=== PATIENT | female | born 1940 | race Caucasian/White ===

== ENCOUNTER 2021-04-05 07:06 | Emergency (ER) | payer MEDICARE, SELFPAY ==
--- NOTE | ~2021-04-05 | CT_ITS ---
EXAMINATION: CT ABDOMEN AND PELVIS WITHOUT CONTRAST CLINICAL INFORMATION: Abdominal pain, nausea and loose stools. COMPARISON: None TECHNIQUE: Multidetector volumetric imaging was performed from the superior aspect of the liver through the pubic symphysis. Sagittal and coronal reformatted images were obtained on the technologist's workstation. This CT examination was performed using dose optimization techniques as appropriate, variously including the following: *Automated exposure control *Adjustment of mA and/or kV according to patient size (this includes techniques or standardized protocols for targeted exams where dose is matched to indication/reason for exam; i.e. extremities or head) *Use of iterative reconstruction technique DLP: 585 mGy-cm FINDINGS: LUNG BASES: There is bibasilar atelectasis. The heart size is normal. A small hiatal hernia is noted. LIVER, GALLBLADDER, AND BILIARY TREE: The liver is normal in size, shape, and attenuation. There is a 1.5 cm left hepatic hypodense lesion measuring 16 Hounsfield units consistent with cysts. There is a 5 mm hypodensity right hepatic lobe image 22/3 probable cyst is There is no intrahepatic ductal dilatation.. The gallbladder is unremarkable with no evidence of radiopaque gallstones, gallbladder wall thickening, or obvious pericholecystic inflammatory changes. PANCREAS: Unremarkable. SPLEEN: Unremarkable. ADRENAL GLANDS: Unremarkable. KIDNEYS AND URETERS: The kidneys are normal in size, shape, and attenuation. No hydronephrosis, hydroureter, or calculi seen. No perinephric stranding. There is a 2.3 cm cyst in the midpole right kidney. BLADDER: The bladder is nondistended with a small urachus noted. GASTROINTESTINAL TRACT: There is scattered stool, diverticula and gas seen throughout the colon without distention. The diverticuli most prominent in the sigmoid colon without any mural thickening or pericolic fat stranding. The small bowel loops are normal caliber. The appendix is not visualized. ABDOMINAL WALL: There is a small umbilical hernia containing fat. LYMPH NODES: Normal. VASCULAR: Unremarkable. PELVIC VISCERA: The uterus is atrophic or surgically removed. There is no adnexal mass seen. No abnormal pelvic lymph nodes. OSSEOUS STRUCTURES: There is grade 1 anterolisthesis L4 over L5 with degenerative disc changes L4-L5 and L5-S1 disc levels. No lytic or sclerotic process seen. CT/CT abdomen pelvis wo con IMPRESSION: Colonic diverticulosis most prominent in the sigmoid colon. No evidence of diverticulitis. Hepatic and right renal cysts. Mild constipation.
--- NOTE | ~2021-04-05 | XR_ITS ---
EXAMINATION: XR CHEST CLINICAL INFORMATION: Weakness. COMPARISON: 11/23/2019 chest radiographs. TECHNIQUE: Frontal view of the chest was obtained. FINDINGS: No significant abnormality is noted involving the heart, lungs, mediastinum, bony thorax or soft tissues. XR/XR chest 1V IMPRESSION: No acute cardiopulmonary process.
--- NOTE | 2021-04-05 07:11 | ECG_ITS ---
Test Reason : WEAKNESS Blood Pressure : / mmHG Vent. Rate : 071 BPM Atrial Rate : 071 BPM P-R Int : 148 ms QRS Dur : 088 ms QT Int : 416 ms P-R-T Axes : 044 -40 017 degrees QTc Int : 452 ms Normal sinus rhythm Incomplete RBBB Left axis deviation Abnormal ECG When compared with ECG of 23-NOV-2019 14:31, No significant change was found Referred By: Shefali Salas Electronically Signed By:Julio Cesar Mckay
--- NOTE | 2021-04-05 07:12 | ED.WEAKNESS ---
HPI - Weakness General Chief complaint: Weakness Stated complaint: general weakness Time Seen by Provider: 04/05/21 07:12 Source: patient and EMS Mode of arrival: EMS Limitations: no limitations History of Present Illness HPI Narrative: 80 yo female with interstitial cystitis, HTN, HLD here with weakness, vague chest pain since 5am, overall feeling weak and nauseated had some chills since the weekend worried she has UTI MD Complaint: generalized weakness Onset (ago): hour(s) (5am) Duration: constant Location: generalized Migration: none Severity: moderate Quality: dull Relieving factors: none Exacerbating factors: none Context: recent illness Associated symptoms: chest pain, fever/chills, loss of appetite and nausea/vomiting Related Data Allergies Allergy/AdvReac Type Severity Reaction Status Date / Time No Known Allergies Allergy Unknown NOT Unverified 07/20/20 14:54 APPLICABLE Review of Systems Review of Systems: Constitutional : No Weight loss, No Fever, pos Chills, pos Fatigue, pos Malaise ENT/Mouth : No sore throat, No Rhinorrhea Eyes: No Eye Pain, No Swelling, No Redness Cardiovascular : pos Chest Pain, No SOB, No Dyspnea on Exertion, No Orthopnea, No Edema, No Palpitations Respiratory : No Cough, No Sputum, No Wheezing Gastrointestinal : pos Nausea, No Vomiting, No Diarrhea, No Constipation, No abdominal Pain, No Hematochezia, No Melena Genitourinary : No Dysuria, No Urinary Frequency, No Hematuria, Musculoskeletal : No joint pain, No Myalgias, No Joint Swelling Skin : No Skin Lesions, No rash Neuro : pos Weakness, No Numbness, No Dizziness, No Headache Psych : No Anxiety/Panic, No Depression Heme/Lymph: No Bruising, No Bleeding,No Lymphadenopathy Endocrine : No Polyuria, No Polydipsia All other systems reviewed and are negative PMFSH Past Medical History Attestation statement: The following information was validated with the patient. Medical History HLD (hyperlipidemia) HTN (hypertension) Interstitial cystitis Social History Social History (Updated 04/05/21 @ 07:15 by Shefali Salas DO) Alcohol intake: never Patient Tobacco Use Status: Never used Tobacco Use of substances other than those prescribed or required for medical reasons: No Advance Directives: Yes Advance Directives Information Provided: No Advance Directives on File: No Physical Exam Vital Signs: Vital Signs: Last Vital Signs Temp 98.1 F 04/05/21 07:58 Pulse 73 04/05/21 10:30 Resp 16 04/05/21 10:30 BP 159/73 H 04/05/21 10:30 Pulse Ox 96 04/05/21 10:30 Body Mass Index 26.7 Appearance: Alert. Oriented X3. No acute distress. Eyes: Pupils equal, round and reactive to light. ENT: Pharynx normal. Neck: Normal inspection. Neck supple. CVS: Normal heart rate and rhythm. Pulses normal. Respiratory: No respiratory distress. Breath sounds normal. Abdomen: Soft and nontender. Skin: Skin warm and dry. Normal skin color. Normal skin turgor. Extremities: No lower extremity edema. No calf ttp Neuro: Oriented X 3. No motor deficit. No sensory deficit. Course Course Course Narrative: patient now also notes loose stools and lower abdominal discomfort this week - CT scan for diverticulitis ordered, hx of same in the past extensive workup repeat troponins, no actual chest pain, CT scan labs UA negative for acute findings, flat troponin stable for DC at this time MDM - Weakness MDM Narrative Medical decision making narrative: 80 yo female with interstitial cystitis, HTN, HLD here with weakness, vague chest pain since 5am, overall feeling weak and nauseated had some chills since the weekend worried she has UTI, at this time will need labs, zofran, CXR, UA, EKG, troponin x 2, very vague chest pain without any associated symptoms atypical for PE/ACS Lab Data Result diagrams: 04/05/21 07:48 04/05/21 07:48 Labs: Lab Results 04/05/21 04/05/21 04/05/21 Range/Units 07:48 07:48 07:48 WBC 6.2 (4.8-10.8) X10*3/uL RBC 5.13 (4.20-5.50) X10*6/uL Hgb 14.7 (12.0-16.0) g/dl Hct 43.5 (37-47) % MCV 84.8 (80-98) fL MCH 28.7 (27.0-33.0) pg MCHC 33.8 (31.0-35.0) g/dl RDW 13.2 (11.0-16.0) % Plt Count 290 (160-400) X10*3/uL MPV 9.9 (9.4-12.3) fL Immature Gran % (Auto) 0.3 (0.0-0.4) % Neut % (Auto) 71.4 (45-73) % Lymph % (Auto) 20.7 (20-40) % [place] % (Auto) 6.3 (2-11) % Eos % (Auto) 1.0 (0-4) % Baso % (Auto) 0.3 (0-2) % Lymph # (Auto) 1.3 (1.2-4.9) X10*3/uL [place] # (Auto) 0.4 (0.1-1.2) X10*3/uL Eos # (Auto) 0.1 (0.0-0.4) X10*3/uL Baso # (Auto) 0.0 (0.0-0.2) X10*3/uL Abs Immat Gran (auto) 0.02 (0.00-0.03) X10*3/uL Absolute Neuts (auto) 4.4 (2.0-8.3) X10*3/uL Absolute Nucleated RBC 0.000 (0.0-0.012) X10*3/uL Nucleated RBC % (auto) 0.0 (0.0-0.2) /100WBC Hold Blue Top SEE NOTE Sodium 135 (135-145) mmol/L Potassium 4.4 (3.3-5.1) mmol/L Chloride 100 (96-108) mmol/L Carbon Dioxide 28 (22-29) mmol/L Anion Gap 11 L (12-20) BUN 13 (9-16) mg/dL Creatinine 0.79 (0.5-1.4) mg/dL Estim Creat Clear Calc 59.8 Estimated GFR > 60 Random Glucose 110 (60-115) mg/dL Calcium 9.7 (8.4-10.2) mg/dL Magnesium 2.3 (1.6-2.6) mg/dL Total Bilirubin 0.6 (0.0-1.0) mg/dL Direct Bilirubin 0.2 (0.0-0.5) mg/dL AST 16 (5-31) U/L ALT 19 (0-31) U/L Alkaline Phosphatase 115 (39-117) U/L Troponin I High Sens (<3.5-17.0) ng/L Total Protein 7.1 (6.5-8.0) g/dL Albumin 4.4 (3.5-5.0) g/dL Lipase 15 (8-78) U/L Urine Color Urine Appearance Urine pH (5.0-8.0) Ur Specific [place] (1.005-1.025) Urine Protein (NEG-TRACE) MG/DL Urine Glucose (UA) (NEG) MG/DL Urine Ketones (NEG) MG/DL Urine Blood (NEG) Urine Nitrite (NEG) Ur Leukocyte Esterase (NEG) Urine RBC (0) /HPF Urine WBC (0-4) /HPF Ur Squamous Epith Cells /LPF Amorphous Sediment /LPF Urine Bacteria /LPF Granular Casts /LPF COVID-19 ([facility]) (Negative) COVID-19 Clin Com 04/05/21 04/05/21 04/05/21 Range/Units 07:48 07:48 07:57 WBC (4.8-10.8) X10*3/uL RBC (4.20-5.50) X10*6/uL Hgb (12.0-16.0) g/dl Hct (37-47) % MCV (80-98) fL MCH (27.0-33.0) pg MCHC (31.0-35.0) g/dl RDW (11.0-16.0) % Plt Count (160-400) X10*3/uL MPV (9.4-12.3) fL Immature Gran % (Auto) (0.0-0.4) % Neut % (Auto) (45-73) % Lymph % (Auto) (20-40) % [place] % (Auto) (2-11) % Eos % (Auto) (0-4) % Baso % (Auto) (0-2) % Lymph # (Auto) (1.2-4.9) X10*3/uL [place] # (Auto) (0.1-1.2) X10*3/uL Eos # (Auto) (0.0-0.4) X10*3/uL Baso # (Auto) (0.0-0.2) X10*3/uL Abs Immat Gran (auto) (0.00-0.03) X10*3/uL Absolute Neuts (auto) (2.0-8.3) X10*3/uL Absolute Nucleated RBC (0.0-0.012) X10*3/uL Nucleated RBC % (auto) (0.0-0.2) /100WBC Hold Blue Top Sodium (135-145) mmol/L Potassium (3.3-5.1) mmol/L Chloride (96-108) mmol/L Carbon Dioxide (22-29) mmol/L Anion Gap (12-20) BUN (9-16) mg/dL Creatinine (0.5-1.4) mg/dL Estim Creat Clear Calc Estimated GFR Random Glucose (60-115) mg/dL Calcium (8.4-10.2) mg/dL Magnesium (1.6-2.6) mg/dL Total Bilirubin (0.0-1.0) mg/dL Direct Bilirubin (0.0-0.5) mg/dL AST (5-31) U/L ALT (0-31) U/L Alkaline Phosphatase (39-117) U/L Troponin I High Sens < 3.5 (<3.5-17.0) ng/L Total Protein (6.5-8.0) g/dL Albumin (3.5-5.0) g/dL Lipase (8-78) U/L Urine Color STRAW Urine Appearance CLEAR Urine pH 7.0 (5.0-8.0) Ur Specific [place] 1.010 (1.005-1.025) Urine Protein NEG (NEG-TRACE) MG/DL Urine Glucose (UA) NEG (NEG) MG/DL Urine Ketones NEG (NEG) MG/DL Urine Blood NEG (NEG) Urine Nitrite NEG (NEG) Ur Leukocyte Esterase TRACE H (NEG) Urine RBC 0 (0) /HPF Urine WBC 0-2 (0-4) /HPF Ur Squamous Epith Cells TRACE /LPF Amorphous Sediment 1+ /LPF Urine Bacteria TRACE /LPF Granular Casts 0-2 /LPF COVID-19 ([facility]) Negative (Negative) COVID-19 Clin Com See Note 04/05/21 Range/Units 11:22 WBC (4.8-10.8) X10*3/uL RBC (4.20-5.50) X10*6/uL Hgb (12.0-16.0) g/dl Hct (37-47) % MCV (80-98) fL MCH (27.0-33.0) pg MCHC (31.0-35.0) g/dl RDW (11.0-16.0) % Plt Count (160-400) X10*3/uL MPV (9.4-12.3) fL Immature Gran % (Auto) (0.0-0.4) % Neut % (Auto) (45-73) % Lymph % (Auto) (20-40) % [place] % (Auto) (2-11) % Eos % (Auto) (0-4) % Baso % (Auto) (0-2) % Lymph # (Auto) (1.2-4.9) X10*3/uL [place] # (Auto) (0.1-1.2) X10*3/uL Eos # (Auto) (0.0-0.4) X10*3/uL Baso # (Auto) (0.0-0.2) X10*3/uL Abs Immat Gran (auto) (0.00-0.03) X10*3/uL Absolute Neuts (auto) (2.0-8.3) X10*3/uL Absolute Nucleated RBC (0.0-0.012) X10*3/uL Nucleated RBC % (auto) (0.0-0.2) /100WBC Hold Blue Top Sodium (135-145) mmol/L Potassium (3.3-5.1) mmol/L Chloride (96-108) mmol/L Carbon Dioxide (22-29) mmol/L Anion Gap (12-20) BUN (9-16) mg/dL Creatinine (0.5-1.4) mg/dL Estim Creat Clear Calc Estimated GFR Random Glucose (60-115) mg/dL Calcium (8.4-10.2) mg/dL Magnesium (1.6-2.6) mg/dL Total Bilirubin (0.0-1.0) mg/dL Direct Bilirubin (0.0-0.5) mg/dL AST (5-31) U/L ALT (0-31) U/L Alkaline Phosphatase (39-117) U/L Troponin I High Sens 3.8 (<3.5-17.0) ng/L Total Protein (6.5-8.0) g/dL Albumin (3.5-5.0) g/dL Lipase (8-78) U/L Urine Color Urine Appearance Urine pH (5.0-8.0) Ur Specific [place] (1.005-1.025) Urine Protein (NEG-TRACE) MG/DL Urine Glucose (UA) (NEG) MG/DL Urine Ketones (NEG) MG/DL Urine Blood (NEG) Urine Nitrite (NEG) Ur Leukocyte Esterase (NEG) Urine RBC (0) /HPF Urine WBC (0-4) /HPF Ur Squamous Epith Cells /LPF Amorphous Sediment /LPF Urine Bacteria /LPF Granular Casts /LPF COVID-19 ([facility]) (Negative) COVID-19 Clin Com ECG Data Attestation: I personally reviewed and interpreted this ECG as follows: ECG interpretation date: 04/05/21 ECG interpretation time: 07:28 Interpretation: Rate: 71 Rhythm: NSR [place]: left Normal P waves. Normal DONALD. Normal QRS complex. ST T wave : normal no HELEN qTC: normal prior studies: no change Nov 2019 The study has been interpreted contemporaneously by me. . Discharge Plan Discharge Clinical Impression: Weakness, Diverticulosis Patient Disposition: Home, Self-Care Instructions: Diverticulosis (ED), Weakness (ED) Additional Instructions: return to ED for any worsening symptoms or concerns probiotics can help with abdominal pain bloating negative urine, negative CT scan, two negative heart tests Referrals: Ger Loyd MD [Primary Care Provider] - 3 days (if not better)
[2021-04-05 07:16] VITALS: BP 155/105; BP 172/90; PULSE 78; PULSE 81; RESP 16; TEMP 36.7; O2SAT 98; BMI 26.7
[2021-04-05 07:26] VITALS: BP 172/90; PULSE 72; RESP 16; O2SAT 96
[2021-04-05 07:58] VITALS: BP 148/111; PULSE 74; RESP 14; TEMP 36.7; O2SAT 98
[2021-04-05 08:11] LABS: MANUAL DIFF FLAG NO
[2021-04-05 08:13] LABS: Basophils Percent Auto 0.3 % (0-2); Eosinophils Absolute Auto 0.1 X10*3/uL (0.0-0.4); Hematocrit 43.5 % (37-47); Hemoglobin 14.7 g/dl (12.0-16.0); Imm Gran Abs Auto 0.02 X10*3/uL (0.00-0.03); Imm Gran Pct Auto 0.3 % (0.0-0.4); Lymphocytes Absolute Auto 1.3 X10*3/uL (1.2-4.9); Lymphocytes Percent Auto 20.7 % (20-40); Mean Corpuscular HGB Conc 33.8 g/dl (31.0-35.0); Mean Corpuscular Hemoglobin 28.7 pg (27.0-33.0); Mean Corpuscular Volume 84.8 fL (80-98); Mean Platelet Volume 9.9 fL (9.4-12.3); Monocytes Absolute Auto 0.4 X10*3/uL (0.1-1.2); Monocytes Percent Auto 6.3 % (2-11); Neutrophils Absolute Auto 4.4 X10*3/uL (2.0-8.3); Neutrophils Percent Auto 71.4 % (45-73); Platelet Count 290 X10*3/uL (160-400); Red Blood Count 5.13 X10*6/uL (4.20-5.50); Red Cell Distribution Width 13.2 % (11.0-16.0); White Blood Count 6.2 X10*3/uL (4.8-10.8)
[2021-04-05] MEDS: ondansetron HCL 4 MG/2 ML VIAL IVPUSH (08:13)
[2021-04-05 08:21] LABS: Glucose Urine UA NEG (NEG); Leukocyte Esterase Urine TRACE (NEG); Nitrite Urine NEG (NEG); UACC Culture Trigger YES; Urine Blood NEG (NEG); Urine Ketones NEG (NEG); Urine Protein NEG (NEG-TRACE)
[2021-04-05 08:24] LABS: Color Urine STRAW
[2021-04-05 08:25] LABS: Appearance Urine CLEAR
[2021-04-05 08:30] LABS: COVID-19 Test Negative (Negative)
[2021-04-05 08:39] LABS: Alanine Aminotransferase 19 U/L (0-31); Albumin Level 4.4 g/dL (3.5-5.0); Alkaline Phosphatase 115 U/L (39-117); Anion Gap 11 (12-20); Aspartate Amino Transferase 16 U/L (5-31); Bilirubin Direct 0.2 mg/dL (0.0-0.5); Bilirubin Total 0.6 mg/dL (0.0-1.0); Blood Urea Nitrogen 13 mg/dL (9-16); Calcium 9.7 mg/dL (8.4-10.2); Carbon Dioxide 28 mmol/L (22-29); Chloride 100 mmol/L (96-108); Creatinine Clr Calc Pharmacy 59.8; Estimated Glomerular Filt Rate > 60; Glucose Random 110 mg/dL (60-115); Lipase 15 U/L (8-78); Magnesium 2.3 mg/dL (1.6-2.6); Potassium 4.4 mmol/L (3.3-5.1); Sodium 135 mmol/L (135-145); Total Protein 7.1 g/dL (6.5-8.0)
[2021-04-05 08:41] LABS: Amorphous Sediment Urine 1+ /LPF; Bacteria Urine TRACE /LPF; Granular Casts Urine 0-2 /LPF; RBC Urine 0 /HPF (0); Squamous Epithelial Cell Urine TRACE /LPF; WBC Urine 0-2 /HPF (0-4)
[2021-04-05 08:41] LABS: Troponin-I High Sensitivity < 3.5 ng/L (<3.5-17.0)
[2021-04-05 09:36] VITALS: BP 130/69; PULSE 72; RESP 13; O2SAT 97
[2021-04-05] MEDS: Simethicone 80 MG TAB.CHEW PO (10:20)
[2021-04-05 10:30] VITALS: BP 159/73; PULSE 73; RESP 16; O2SAT 96
[2021-04-05 12:07] LABS: Troponin-I High Sensitivity 3.8 ng/L (<3.5-17.0)
[2021-04-05 12:20] VITALS: BP 137/68; PULSE 76; RESP 16; O2SAT 96
== END 2021-04-05 12:33 | disposition home or self-care (01) ==
PROVIDERS: Emergency Provider Emergency Medicine; PCP Internal Medicine
DX: K57.30 Diverticulosis of large intestine without perforation or abscess without bleeding (principal); R53.1 Weakness; I10 Essential (primary) hypertension; Z79.899 Other long term (current) drug therapy; Z20.822 Contact with and (suspected) exposure to COVID-19
CPT/HCPCS: 36415; 71045; 74176; 80048; 80076; 81001; 81003; 83690; 83735; 84484; 85025; 87086; 87635; 93005; 96374; 99285; J2405

== ENCOUNTER 2023-09-25 21:50 | Emergency (ER) | payer MEDICARE, SELFPAY ==
--- NOTE | 2023-09-25 22:19 | ECG_ITS ---
Test Reason : HTN Blood Pressure : / mmHG Vent. Rate : 082 BPM Atrial Rate : 082 BPM P-R Int : 152 ms QRS Dur : 086 ms QT Int : 384 ms P-R-T Axes : 039 -41 003 degrees QTc Int : 448 ms Sinus rhythm with occasional Premature ventricular complexes RSR' or QR pattern in V1 suggests right ventricular conduction delay Left anterior fascicular block Abnormal ECG When compared with ECG of 05-APR-2021 07:23, Premature ventricular complexes are now Present Referred By: Generic ED Physician Electronically Signed By:SHARON BROWN MD
[2023-09-25 22:24] VITALS: BP 178/95; PULSE 88; RESP 16; TEMP 36.9; O2SAT 88; BMI 27.7
[2023-09-25 22:48] LABS: MANUAL DIFF FLAG NO
[2023-09-25 22:50] LABS: Basophils Absolute Auto 0.1 X10*3/uL (0.0-0.2); Basophils Percent Auto 0.6 % (0-2); Eosinophils Absolute Auto 0.2 X10*3/uL (0.0-0.4); Eosinophils Percent Auto 2.1 % (0-4); Hematocrit 39.4 % (37.0-47.0); Hemoglobin 13.3 g/dl (12.0-16.0); Imm Gran Abs Auto 0.03 X10*3/uL (0.00-0.03); Imm Gran Pct Auto 0.4 % (0.0-0.4); Lymphocytes Absolute Auto 1.6 X10*3/uL (1.2-4.9); Lymphocytes Percent Auto 18.4 % (20-40); Mean Corpuscular HGB Conc 33.8 g/dl (31.0-35.0); Mean Corpuscular Hemoglobin 28.5 pg (27.0-33.0); Mean Corpuscular Volume 84.5 fL (80.0-98.0); Mean Platelet Volume 9.4 fL (9.4-12.3); Monocytes Absolute Auto 0.7 X10*3/uL (0.1-1.2); Monocytes Percent Auto 7.7 % (2-11); Neutrophils Percent Auto 70.8 % (45-73); Platelet Count 285 X10*3/uL (160-400); Red Blood Count 4.66 X10*6/uL (4.20-5.50); Red Cell Distribution Width 13.4 % (11.0-16.0); White Blood Count 8.4 X10*3/uL (4.8-10.8)
[2023-09-25 23:04] VITALS: BP 152/84; PULSE 79; RESP 17; TEMP 36.6; O2SAT 95
[2023-09-25 23:05] LABS: Anion Gap 12 (12-20); Blood Urea Nitrogen 18 mg/dL (9-16); Calcium 9.4 mg/dL (8.4-10.2); Carbon Dioxide 27 mmol/L (22-29); Chloride 95 mmol/L (96-108); Creatinine Clr Calc Pharmacy 54.2; Estimated Glomerular Filt Rate > 60; Glucose Random 115 mg/dL (60-115); Sodium 130 mmol/L (135-145)
--- NOTE | 2023-09-25 23:09 | ED_ITS ---
HPI - General Adult General Chief complaint: General Medical Stated complaint: high bp,nausea,?allergic reaction Time Seen by Provider: 09/25/23 23:09 Source: patient Mode of arrival: ambulatory Limitations: no limitations History of Present Illness HPI narrative: Patient 83 years old history of hypertension on lisinopril 20 hydrochlorothiazide 12.5 usually well controlled in 130 systolic range patient recently had bronchitis started on prednisone Zithromax and Tessalon Perles today patient noticed slight headache feeling check the blood pressure was 190/110 no chest pain or palpitation no shortness of breath Related Data Allergies Allergy/AdvReac Type Severity Reaction Status Date / Time No Known Allergies Allergy Unknown NOT Unverified 07/20/20 14:54 APPLICABLE Review of Systems 2 Review of Systems: Yes all other systems are reviewed and are negative [facility] Past Medical History Medical History Interstitial cystitis HLD (hyperlipidemia) HTN (hypertension) Social History Alcohol intake: never Patient Tobacco Use Status: Never used Tobacco Advance Directives: No Advance Directives Information Provided: No Physical Exam ED Vital Signs: Vital Signs - 24 hr 09/25/23 22:24 09/25/23 23:04 09/25/23 23:33 Temperature 98.4 F 98 F 98.5 F Pulse Rate 88 79 75 Respiratory Rate 16 17 16 Blood Pressure 178/95 H 152/84 H 162/83 H Pulse Oximetry 88 L 95 95 Oxygen Delivery Method Room Air Room Air BMI result Body Mass Index 27.7 Appearance: Alert. Oriented X3. No acute distress. ENT: Pharynx normal. Oral Mucosa moist Neck: Normal inspection. Neck supple. CVS: Normal heart rate and rhythm. Pulses normal. Respiratory: No respiratory distress. Equal air entry bilateral, no wheezing/rales/rhonchi Abdomen: Soft and nontender. Bowel sounds are present, no mass palpable, no CVA tenderness Skin: Skin warm and dry. Normal skin color. Normal skin turgor. Extremities: No lower extremity edema. No calf tenderness Neuro: Oriented X 3. No motor deficit. No sensory deficit.No cerebellar signs , cranial nerves II-XII intact Medical Decision Making Medical Decision Making MDM Narrative: Him transient elevated blood pressure at home during stay in the ER blood pressure decreased to 137/68 patient recently took prednisone Zithromax may be the cause for high blood pressure. Patient advised to follow with PCP check blood pressure regularly twice daily her sodium level was slightly low patient is on hydrochlorothiazide likely the cause Differential Diagnosis Differential Diagnoses: The differential diagnosis associated with the presentation includes Admission/Observation Consideration of admission/observation: Escalation of care including admission/observation considered Lab Data MDM Lab Attestation statement: I reviewed the patient's lab results. 09/25/23 22:43 09/25/23 22:43 Labs: Lab Results 09/25/23 Range/Units 22:43 WBC 8.4 (4.8-10.8) X10*3/uL RBC 4.66 (4.20-5.50) X10*6/uL Hgb 13.3 (12.0-16.0) g/dl Hct 39.4 (37.0-47.0) % MCV 84.5 (80.0-98.0) fL MCH 28.5 (27.0-33.0) pg MCHC 33.8 (31.0-35.0) g/dl RDW 13.4 (11.0-16.0) % Plt Count 285 (160-400) X10*3/uL MPV 9.4 (9.4-12.3) fL Immature Gran % (Auto) 0.4 (0.0-0.4) % Neut % (Auto) 70.8 (45-73) % Lymph % (Auto) 18.4 L (20-40) % [place] % (Auto) 7.7 (2-11) % Eos % (Auto) 2.1 (0-4) % Baso % (Auto) 0.6 (0-2) % Lymph # (Auto) 1.6 (1.2-4.9) X10*3/uL [place] # (Auto) 0.7 (0.1-1.2) X10*3/uL Eos # (Auto) 0.2 (0.0-0.4) X10*3/uL Baso # (Auto) 0.1 (0.0-0.2) X10*3/uL Abs Immat Gran (auto) 0.03 (0.00-0.03) X10*3/uL Absolute Neuts (auto) 6.0 (2.0-8.3) x10*3/uL Absolute Nucleated RBC 0.000 (0.0-0.012) X10*3/uL Nucleated RBC % (auto) 0.0 (0.0-0.2) /100WBC Sodium 130 L (135-145) mmol/L Potassium 4.0 (3.3-5.1) mmol/L Chloride 95 L (96-108) mmol/L Carbon Dioxide 27 (22-29) mmol/L Anion Gap 12 (12-20) BUN 18 H (9-16) mg/dL Creatinine 0.84 (0.5-1.4) mg/dL Estim Creat Clear Calc 54.2 Estimated GFR > 60 Random Glucose 115 (60-115) mg/dL Calcium 9.4 (8.4-10.2) mg/dL Troponin I High Sens < 2.7 (<3.5-17.0) ng/L Independent Interpretation I performed an independent interpretation of an: EKG Interpretation: Sinus rhythm left axis deviation heart rate 82 beats per minute no acute ST-T no acute ischemia Discharge Plan Discharge Clinical Impression: Hypertension Patient Disposition: Home, Self-Care Instructions: Hypertension (ED) Additional Instructions: You had Transiently elevated blood pressure Continue to take your blood pressure medication daily check blood pressure twice daily it should be less than 135/85 Follow-up with your PCP Interventions: ED Discharge Assessment Last Done: 09/26/23 00:12
[2023-09-25 23:13] LABS: Troponin-I High Sensitivity < 2.7 ng/L (<3.5-17.0)
[2023-09-25 23:33] VITALS: BP 162/83; PULSE 75; RESP 16; TEMP 36.9; O2SAT 95
== END 2023-09-26 00:14 | disposition home or self-care (01) ==
PROVIDERS: Emergency Provider Internal Medicine; PCP Internal Medicine
DX: I10 Essential (primary) hypertension (principal); R51.9 Headache, unspecified; E78.5 Hyperlipidemia, unspecified; Z79.899 Other long term (current) drug therapy
CPT/HCPCS: 36415; 80048; 84484; 85025; 93005; 99283; 99284

== ENCOUNTER 2025-08-23 15:23 | Emergency (ER) | payer MEDICARE, SELFPAY ==
--- OUTSIDE RECORDS SUMMARY | 2024-09-03 06:00 | XMS_ITS ---
Author Organization [facility] Address [address] [place] [address] Care Team Providers Care Architectural Practice Manager Name Role Phone Rach FIGUEROA, Ger Primary Care Provider Amy Parry Unavailable [phone] Encounters Encounter Location Date Provider Diagnosis [facility] [address] [place] [address] 09/03/2024 Amy Owen Plan Of Treatment No Information Progress Notes * Liyah AREVALOJulesOB: [birth year] (85 yo F)Acc No.[id number]:09/03/2024 Progress Note Patient: Criselda TINEO Provider: Marciano Owen DPM :1940 A ge:84 Y S ex:Female Date:09/03/2024 Address:[address] [place] [address] [id number] Pcp:Ger Loyd MD Subjective: * Chief Complaints: * * Medical History: Objective: * Vitals: Assessment: Plan: * Treatment: * Images: * The named appointment provid er may or may not be the originator of this progress note, and it is not deemed complete until electronically signed by the appointment provider. Sign off status: Pending * Provider: Marciano Owen DPM Date: 11/03/2023 Generated for Printi ng/Fafoxg/eTransmitting on: 08:57 PM EDT
[2025-08-23] VITALS (7 sets, daily range): BP systolic 146–165; BP diastolic 64–81; PULSE 76–88; RESP 14–18; TEMP 36.7–37.1; O2SAT 94–96; BMI 28.3
--- NOTE | ~2025-08-23 | CT_ITS ---
CLINICAL HISTORY: sudden onset head fullness, dizziness CT HEAD WITHOUT CONTRAST Comparison: None provided Findings: No acute intracranial hemorrhage, extra-axial fluid collection, hydrocephalus or midline shift. Age appropriate generalized parenchymal atrophy. There are periventricular and subcortical white matter hypodensities which are nonspecific but most likely related to microangiopathic gliosis. Intracranial arteriosclerosis. There is no sinus or mastoid fluid. Visualized orbits: No acute abnormalities. There is no acute fracture. IMPRESSION: 1. No acute intracranial process. This document has been electronically signed by: Brianna Fish DO on 08/23/2025 17:55:44
--- NOTE | 2025-08-23 15:37 | ECG_ITS ---
Test Reason : NEAR SYNCOPE Blood Pressure : */* mmHG Vent. Rate : 77 BPM Atrial Rate : 77 BPM P-R Int : 148 ms QRS Dur : 90 ms QT Int : 394 ms P-R-T Axes : 30 -43 14 degrees QTcB Int : 445 ms Normal sinus rhythm Left axis deviation Abnormal ECG When compared with ECG of 25-Sep-2023 22:34, Premature ventricular complexes are no longer Present Referred By: Generic ED Physician Electronically Signed By: JORDAN ANDRADE MD
--- NOTE | 2025-08-23 16:33 | ECG_ITS ---
Test Reason : NEAR SYNCOPE Blood Pressure : */* mmHG Vent. Rate : 77 BPM Atrial Rate : 77 BPM P-R Int : 148 ms QRS Dur : 90 ms QT Int : 394 ms P-R-T Axes : 30 -43 14 degrees QTcB Int : 445 ms Normal sinus rhythm Left axis deviation Abnormal ECG When compared with ECG of 23-Aug-2025 15:40, No significant change was found Referred By: Melissa Castellon Electronically Signed By: JORDAN ANDRADE MD
--- NOTE | 2025-08-23 16:36 | ED_ITS ---
HPI - General Adult General Chief complaint: Weakness Stated complaint: headache, nausea Time Seen by Provider: 08/23/25 16:03 Source: patient and EMS Mode of arrival: EMS Limitations: no limitations History of Present Illness ED Provider: Dr. Melissa Castellon HPI narrative: Patient comes to the emergency room complaining of head fullness sensation in near syncopal sensation. Patient states that earlier today she was sitting down working on her computer, patient had a sudden onset of bilateral frontal head fullness and feeling that she was going to pass out. Patient states that it was a strange sensation. Patient did not have any changes in vision, no mental status changes, no confusion, denies any aphasia or dysarthria. Patient denies any loss of motor function in upper or lower extremities, denies numbness or tingling. Patient states that this time she still feels a bit of head fullness especially in bilateral frontal aspects. Patient states that today she was supposed to have an appointment with her PCP to address head fullness and postnasal drip. Patient denies shortness of breath, denies sinus tenderness. Denies any fever chills Related Data Previous Rx's ?Medication ?Instructions ?Recorded cefuroxime axetil 250 mg tablet 250 mg PO BID #14 tabs 08/23/25 Allergies Allergy/AdvReac Type Severity Reaction Status Date / Time No Known Allergies Allergy Unknown NOT Verified 08/23/25 15:45 APPLICABLE Review of Systems 2 Review of Systems: Constitutional : No Weight loss, No Fever, No Chills, No Night Sweats, No Fatigue, No Malaise ENT/Mouth : No Hearing loss, No Ear Pain, No Nasal Congestion, No Sinus Pain, No Hoarseness, No sore throat, No Rhinorrhea, No Swallowing Difficulty Eyes: No Eye Pain, No Swelling, No Redness, No Foreign Body, No Discharge, No Vision Changes Cardiovascular : No Chest Pain, No SOB, No Dyspnea on Exertion, No Orthopnea, No Edema, No Palpitations Respiratory : No Cough, No Sputum, No Wheezing, No Smoke Exposure, No Dyspnea Gastrointestinal : No Nausea, No Vomiting, No Diarrhea, No Constipation, No abdominal Pain, No Hematochezia, No Melena Genitourinary : no irregular bleeding, No Dysuria, No Urinary Frequency, No Hematuria, No Urinary Incontinence, No Urgency, No Flank Pain, No Urinary Flow Changes, No Hesitancy Musculoskeletal : No joint pain, No Myalgias, No Joint Swelling Skin : No Skin Lesions, No rash Neuro : No Weakness, No Numbness, No Paresthesias, No Loss of Consciousness, complaining of dizziness, complaining of head fullness without headache Psych : No Anxiety/Panic, No Depression, No SI/HI/AH/VH, No Social Issues, Heme/Lymph: No Bruising, No Bleeding,No Lymphadenopathy Endocrine : No Polyuria, No Polydipsia, No Temperature Intolerance [facility] Past Medical History Medical History Interstitial cystitis HLD (hyperlipidemia) HTN (hypertension) Social History Social History Alcohol intake: never Patient Tobacco Use Status: Never used Tobacco Smoked in Last 30 Days: No Use of substances other than those prescribed or required for medical reasons: No Advance Directives: No Advance Directives Information Provided: Yes Physical Exam ED Exam Exam: Appearance: Alert. Oriented X3. No acute distress. Eyes: Pupils equal, round and reactive to light. ENT: Pharynx normal. Neck: Normal inspection. Neck supple. No lymph nodes noted. No crepitus CVS: Normal heart rate and rhythm. Pulses normal. Normal S1 and S2 Respiratory: No respiratory distress. Breath sounds normal. No Wheezing. No rales Abdomen: Soft and nontender. No rigidity. No distention. Skin: Skin warm and dry. Normal skin color. Normal skin turgor. Extremities: No lower extremity edema. No Lacerations. No Rash Neuro: Oriented X 3. No motor deficit. No sensory deficit. Moving all extremities. No slurred speech. CN 2 through 12 grossly intact Psych: calm, cooperative, normal affect Vital Signs: Vital Signs - 24 hr 08/23/25 15:32 08/23/25 15:40 08/23/25 19:35 Temperature 98.8 F 98.8 F 98.1 F Pulse Rate 81 79 85 Respiratory Rate 18 14 16 Blood Pressure 165/79 H 158/73 H 157/70 H Pulse Oximetry 96 96 95 Oxygen Delivery Method Room Air Room Air Room Air 08/23/25 20:55 08/23/25 20:55 08/23/25 20:57 Temperature Pulse Rate 78 80 88 Respiratory Rate Blood Pressure 163/72 H 164/80 H 161/81 H Pulse Oximetry Oxygen Delivery Method 08/23/25 21:31 Temperature 98.5 F Pulse Rate 76 Respiratory Rate 16 Blood Pressure 146/71 H Pulse Oximetry 94 Oxygen Delivery Method Room Air BMI result Body Mass Index 28.3 Course Course Course Narrative: Patient complaining of head fullness, no headache, no neurological signs All of patient's labs and imaging pending. Medications Administered Discontinued Medications Generic Name Dose Route Start Last Admin Trade Name Johny PRN Reason Stop Dose Admin Acetaminophen 975 mg 08/23/25 18:13 08/23/25 18:22 Acetaminophen 325 Mg Tablet PO 08/23/25 18:14 975 mg ONCE ONE Administration Medical Decision Making Medical Decision Making [facility] Narrative: My interpretation of EKG: Normal sinus rhythm, heart rate 77, no ST segment depression or elevation, no T-wave inversion, QTC 445 My interpretation of labs: No significant abnormality patient's hematology or chemistry, LFTs within normal limits, troponin negative Urinalysis positive for trace blood, white blood cell count present, no squamous epithelial cells. Orthostatic vitals negative Patient has no urinary symptoms. However, given the patient's recent symptoms including dizziness, we will treat as a UTI. I discussed the above-mentioned with the patient, patient agrees with plan. Patient was given the 1st dose of cefuroxime in the emergency room Differential Diagnosis Differential Diagnoses: The differential diagnosis associated with the presentation includes (UTI, TIA, orthostatic hypotension, BPPV) Admission/Observation Consideration of admission/observation: Escalation of care including admission/observation considered (Given patient's age and symptoms, observation was considered) Lab Data [facility] Lab Attestation statement: I reviewed the patient's lab results. 08/23/25 16:51 08/23/25 16:51 Labs: Lab Results 08/23/25 08/23/25 08/23/25 Range/Units 16:49 16:51 20:58 WBC 9.2 (4.8-10.8) X10*3/uL RBC 4.84 (4.20-5.50) X10*6/uL Hgb 13.8 (12.0-16.0) g/dl Hct 40.5 (37.0-47.0) % MCV 83.7 (80.0-98.0) fL MCH 28.5 (27.0-33.0) pg MCHC 34.1 (31.0-35.0) g/dl RDW 13.8 (11.0-16.0) % Plt Count 285 (160-400) X10*3/uL MPV 9.7 (9.4-12.3) fL Immature Gran % (Auto) 0.4 (0.0-0.4) % Neut % (Auto) 76.7 H (45-73) % Lymph % (Auto) 15.2 L (20-40) % [place] % (Auto) 6.3 (2-11) % Eos % (Auto) 1.0 (0-4) % Baso % (Auto) 0.4 (0-2) % Lymph # (Auto) 1.4 (1.2-4.9) X10*3/uL [place] # (Auto) 0.6 (0.1-1.2) X10*3/uL Eos # (Auto) 0.1 (0.0-0.4) X10*3/uL Baso # (Auto) 0.0 (0.0-0.2) X10*3/uL Abs Immat Gran (auto) 0.04 H (0.00-0.03) X10*3/uL Absolute Neuts (auto) 7.0 (2.0-8.3) x10*3/uL Absolute Nucleated RBC 0.000 (0.0-0.012) X10*3/uL Nucleated RBC % (auto) 0.0 (0.0-0.2) /100WBC Sodium 136 (135-145) mmol/L Potassium 4.4 (3.3-5.1) mmol/L Chloride 103 (96-108) mmol/L Carbon Dioxide 27 (22-29) mmol/L Anion Gap 10 L (12-20) BUN 12 (9-16) mg/dL Creatinine 0.71 (0.5-1.4) mg/dL Estim Creat Clear Calc 62.6 Estimated GFR > 60 Random Glucose 100 (60-115) mg/dL Calcium 9.5 (8.4-10.2) mg/dL Total Bilirubin 0.2 (0.0-1.0) mg/dL Direct Bilirubin < 0.2 (0.0-0.5) mg/dL AST 23 (5-31) U/L ALT 21 (0-31) U/L Alkaline Phosphatase 116 (39-117) U/L Troponin I High Sens < 2.7 (<3.5-17.0) ng/L Total Protein 7.0 (6.5-8.0) g/dL Albumin 4.3 (3.5-5.0) g/dL Urine Color Yellow Urine Appearance Clear Urine pH 7.0 (5.0-9.0) Ur Specific [place] 1.015 (1.005-1.025) Urine Protein Negative (Neg-Trace) mg/dL Urine Glucose (UA) Negative (Negative) mg/dL Urine Ketones Negative (Negative) mg/dL Urine Blood Trace H (Negative) Urine Nitrite Negative (Negative) Ur Leukocyte Esterase Small (1+) H (Negative) Urine RBC 3-5 H (0-2) /HPF Urine WBC 11-20 H (0-5) /HPF Ur Squamous Epith Cells 0-2 (0-2) /HPF Urine Bacteria None Seen (None Seen) Hyaline Casts 0-2 (0-2) /LPF Influenza Type A (PCR) NEGATIVE (Negative) Influenza Type B (PCR) NEGATIVE (Negative) RSV RNA Qual (PCR) NEGATIVE (Negative) SARS-CoV-2 RNA (RT-PCR) NEGATIVE (Negative) Independent Interpretation I performed an independent interpretation of an: CT Scan Radiology Impression Discussion of test interpretation with radiology: I have reviewed the radiologist's reading. Radiologist Impression: No acute intracranial hemorrhage, extra-axial fluid collection, hydrocephalus or midline shift. Age appropriate generalized parenchymal atrophy. There are periventricular and subcortical white matter hypodensities which are nonspecific but most likely related to microangiopathic gliosis. Intracranial arteriosclerosis. There is no sinus or mastoid fluid. Visualized orbits: No acute abnormalities. There is no acute fracture. IMPRESSION: 1. No acute intracranial process. Critical Care Time Critical Care Time Critical Care Time: Yes Total Critical Care Time: 35 Attestation: I have personally provided critical care time. Time includes review of lab data, radiology results, discussion with consultants, and monitoring for potential decompensation. Intervention performed as documented. Discharge Plan Discharge Clinical Impression: Dizziness, Acute UTI Patient Disposition: Home, Self-Care Instructions: Dizziness (ED), Urinary Tract Infection in Older Adults (ED) Additional Instructions: Please follow-up with your primary care physician tomorrow. If you have any worsening or new symptoms, please return to the emergency room or call 911 Prescriptions: New cefuroxime axetil 250 mg tablet 250 mg PO BID Qty: 14 0RF Print Language: Arabic
[2025-08-23 16:56] LABS: MANUAL DIFF FLAG NO
[2025-08-23 16:57] LABS: Hematocrit 40.5 % (37.0-47.0); Hemoglobin 13.8 g/dl (12.0-16.0); Imm Gran Abs Auto 0.04 X10*3/uL (0.00-0.03); Imm Gran Pct Auto 0.4 % (0.0-0.4); Lymphocytes Absolute Auto 1.4 X10*3/uL (1.2-4.9); Mean Corpuscular HGB Conc 34.1 g/dl (31.0-35.0); Mean Corpuscular Hemoglobin 28.5 pg (27.0-33.0); Mean Corpuscular Volume 83.7 fL (80.0-98.0); NRBC Abs Auto 0.000 X10*3/uL (0.0-0.012); NRBC Pct Auto 0.0 /100WBC (0.0-0.2); Platelet Count 285 X10*3/uL (160-400); Red Blood Count 4.84 X10*6/uL (4.20-5.50); White Blood Count 9.2 X10*3/uL (4.8-10.8)
[2025-08-23 17:12] LABS: Alanine Aminotransferase 21 U/L (0-31); Albumin Level 4.3 g/dL (3.5-5.0); Alkaline Phosphatase 116 U/L (39-117); Anion Gap 10 (12-20); Aspartate Amino Transferase 23 U/L (5-31); Blood Urea Nitrogen 12 mg/dL (9-16); Calcium 9.5 mg/dL (8.4-10.2); Carbon Dioxide 27 mmol/L (22-29); Chloride 103 mmol/L (96-108); Creatinine Clr Calc Pharmacy 62.6; Estimated Glomerular Filt Rate > 60; Potassium 4.4 mmol/L (3.3-5.1); Sodium 136 mmol/L (135-145); Total Protein 7.0 g/dL (6.5-8.0)
[2025-08-23 17:19] LABS: Troponin-I High Sensitivity < 2.7 ng/L (<3.5-17.0)
[2025-08-23 17:33] LABS: Resp Syncy Virus RNA Qual PCR NEGATIVE (Negative); SARS COV2 PCR INHOUSE NEGATIVE (Negative)
--- OUTSIDE RECORDS SUMMARY | 2025-08-23 20:58 | XMS_ITS | Patient Health Record ---
Author Organization [facility] Address [address] [place] [address] Care Team Providers Care Licensed Certified Orthotist Name Role Phone Ger Loyd MD Primary Care Provider Amy Parry Unavailable [phone] Allergies No Known Allergies Reason For Referral No Information Medications Medication SIG (Take, Route, Frequency, Duration) Notes Start Date End Date Status Atorvastatin Calcium 10 MG 1 tablet Oral ly Once a day Active Caltrate 600 1200 mg Active hydroCHLOROthiazide 25 MG Orally Once a day Active Lisinopril 20 MG 1 tablet Orally Once a day Active LORazepam .025 mg Injection Ac tive Magnesium 250 MG 1 tablet with a meal Orally Once a day Active ASA Not-Taking Social History Tobacco Use: Social History Observation Description Date Details (start date - stop date) Never Smoker NA - NA Tobacco Use/Smoking Question Answer Notes Are you a: nonsmoker Additional Findings: Tobacco Non-User Current no n-smoker Alcohol Screen Question Answer Notes Did you have a drink containing alcohol in the p ast year? No Points 0 Interpretation Negative Tobacco use other than smoking: Question Answer Notes Are you an other tobacco user? No Problems Problem Type SNOMED Code ICD Code Onset Dates Problem Status W/U Status Risk Notes Problem Arthritis (1678595) Arthritis (M19.90) Active confirmed Problem Steppage gait (79666609) Steppage gait (R26.89) Active confirmed Encounters Encounter Location Date Provider Diagnosis [facility] [address] [place] [address] 08/30/2024 Amy Owen Plan Of Treatment Pending Test Test Name Order Date X ray : Foot, right 3V 02/05/2022 X ray : Foot, right 3V 03/05/2022 [id number] Plate 10/13/2018 Insurance Providers Payer Name Payer Address Payer Phone Subscriber Number Group Number Insured Name Patient Relationship to Insured Coverage Start Date Coverage End Date Medicare [employer] [address] [place] [address] [id number] Criselda Landry Self - patient is the insured 4 [employer] [address] [place] [address] [id number] Criselda Landry Self - patient is the insured Medical (General) History Medical History History ICD Code Anxiety Broken bones Cholesterol Diverticulitis High blood pressure Osteoporosis Reflux Measles Mumps Chicken pox Joint implants/screws, right ankle, left elbow Surgical History Surgery Date(Month/Year) hysterectomy 1980 elbow sx, left fracture repair 1984 ankle fracture, dislocation, right 2016
[2025-08-23 21:10] LABS: Appearance Urine Clear; Glucose Urine UA Negative (Negative); PH 7.0 (5.0-9.0); Specific Gravity - Urine 1.015 (1.005-1.025); UMIC TRIGGER UACC YES
[2025-08-23 21:13] LABS: UACC Culture Trigger YES
--- NOTE | 2025-08-23 22:04 | PC.NURSE ---
per MD orders, RN walked with patient down the [place] and back. Pt had no difficulty; no pain, sob. MD made aware.
== END 2025-08-23 23:22 | disposition home or self-care (01) ==
PROVIDERS: Emergency Provider Emergency Medicine; PCP Internal Medicine
DX: R42 Dizziness and giddiness (principal); N39.0 Urinary tract infection, site not specified; R53.1 Weakness; R11.0 Nausea; R51.9 Headache, unspecified; R94.31 Abnormal electrocardiogram [ECG] [EKG]; Z03.818 Encounter for observation for suspected exposure to other biological agents ruled out
CPT/HCPCS: 36415; 70450; 80048; 80076; 81001; 84484; 85025; 87086; 87637; 93005; 99284; 99285

== ENCOUNTER → 2025-08-23 15:37 | Outpatient (BNV) | payer MEDICARE, SELFPAY | PROVIDERS: Emergency Provider Emergency Medicine; PCP Internal Medicine; Visit Provider Internal Medicine Cardiovascular Disease | DX: R94.31 Abnormal electrocardiogram [ECG] [EKG] (principal); R55 Syncope and collapse | CPT/HCPCS: 93010 ==

== ENCOUNTER → 2025-08-23 16:49 | Outpatient (BNV) | payer MEDICARE, SELFPAY | PROVIDERS: Emergency Provider Emergency Medicine; PCP Internal Medicine; Visit Provider Radiology Diagnostic Radiology | DX: R42 Dizziness and giddiness (principal); R68.89 Other general symptoms and signs | CPT/HCPCS: 70450 ==